=== PATIENT | male | born 1970 | race Caucasian/White ===

== ENCOUNTER 2017-10-28 20:46 | Inpatient (IN) ==
[2017-10-28] MEDS ORDERED: Thiamine Inj 100 MG in Sodium Chlor 0.9% Inj 100 ML IV.SIG ONE (20:55)
[2017-10-28] MEDS ORDERED: Magnesium Oxide 400 MG Tablet PO PRN (21:08)
[2017-10-28] MEDS ORDERED: Potassium Chlor 20 mEq Premix 20 MEQ/100 ML PIGGYBACK IV.SIG PRN ×2 (21:08)
[2017-10-28] MEDS ORDERED: Potassium Phosphate 500 MG Soluble Tablet PO PRN ×2 (21:08)
[2017-10-28] MEDS ORDERED: fentaNYL 10 mcg/mL Premix Drip 2,500 MCG/250 ML BAG IV.SIG PRN (21:08)
[2017-10-28] MEDS ORDERED: Magnesium Sulfate Inj 4 GM in Sodium Chlor 0.9% Inj 92 ML IV.SIG PRN (21:08)
[2017-10-28] MEDS ORDERED: Potassium Chlor 40 mEq Premix 40 MEQ/100 ML PIGGYBACK IV.SIG PRN ×2 (21:08)
[2017-10-28] MEDS ORDERED: Potassium Chloride 25 MEQ Effervescent Tablet PO PRN (21:08)
[2017-10-28] MEDS ORDERED: Sodium Phosphate Inj 30 MMOL in Sodium Chlor 0.9% Inj 250 ML IV.SIG PRN (21:08)
[2017-10-28] MEDS ORDERED: Potassium Phosphate Inj 30 MMOL in Sodium Chlor 0.9% Inj 250 ML IV.SIG PRN (21:08)
[2017-10-28] MEDS ORDERED: Magnesium Sulfate Inj 2 GM in Sodium Chlor 0.9% Inj 96 ML IV.SIG PRN (21:08)
[2017-10-28] MEDS ORDERED: Bisacodyl 10 MG Supp RECTAL PRN (21:08)
--- NOTE | 2017-10-28 21:13 | ED ---
HPI General Chief Complaint: Altered Mental Status Stated Complaint: Medical Time Seen by Provider: 10/28/17 20:54 Source: EMS Mode of arrival: EMS Limitations: altered mental status History of Present Illness HPI narrative: According to rotary driller helper report transported adult male to the emergency department after called as patient returned home from local bar after reportedly drinking 2 alcoholic beverages complaining of severe chest pain. per rotary driller helper report voices no known medical conditions no reported history of heart disease hypertension dyslipidemia or diabetes. No reported known allergies. No reported prescription medications. Upon fire department arrival patient sitting the chair was noted to have 2 episodes of brief syncope and spontaneous return of consciousness but appeared to be agitated or postictal and then paramedics arrived patient was initially calm and then became very erratic and combative in his behavior such that paramedics had to administer 500 mg IM of ketamine the patient was still combative and fighting the paramedics and firefighters therefore paramedics called for additional medication was given authorization to administer Versed 2 mg IV and according to rotary driller helper report patient then became unresponsive with sonorous respirations and patient was subsequently intubated with an 8.0 endotracheal tube after additional administration of Versed 2 mg and etomidate 20 mg. Patient was identified to have good bilateral breath sounds and was transported to the emergency department according to paramedics EKG was sinus tach with no evidence of acute ST elevation however ST segment depression was noted in V4 and V5 and QS noted septally in V1 and V2 no acute ST elevation. MD complaint: altered mental status Onset (ago): minute(s) Timing confirmed by: other (Report per EMS) Severity: severe Consistency of symptoms: constant Context: alcohol abuse (Reported alcohol consumption just prior to onset of symptoms) Associated symptoms: chest pain (According to paramedics stated patient has had complaint of chest pain prior to onset of symptoms) and syncope ( According to firefighters 2 brief syncopal episodes spontaneous return of consciousness) Treatments prior to arrival: intubation (8.0 cuffed endotracheal tube; ketamine 500 mg IM, Versed 2 mg IV, repeat Versed 2 mg IV and etomidate 20 mg IV) Related Data Home Medications Medication Instructions Recorded Confirmed cyclobenzaprine 10 mg PO TID PRN 10/28/17 10/28/17 pantoprazole 40 mg PO DAILY 10/28/17 10/28/17 Allergies Allergy/AdvReac Type Severity Reaction Status Date / Time No Known Allergies Allergy Unverified 10/28/17 20:54 Review of Systems ROS Unobtainable ROS Unobtainable: unobtainable due to endotracheal tube PMFSH History History Provided By: Business Banking Officer / EMT Social History Social History Substance History: Unable to Obtain Smoking Status: Unknown if ever smoked How Often Do You Have a Drink Containing Alcohol: Unable to Obtain Recent Travel in [facility] within the Last 8 Weeks: No Recent Out of Country Travel within the Last 8 Weeks: No Exam Narrative Exam Narrative: GENERAL: GCS 3-T; well-developed well-nourished male with endotracheal tube in place with breath sounds confirmed on EMS stretcher and emergency department stretcher; end-tidal CO2; no borborygmi SKIN: Focused skin assessment warm/dry. HEAD: Atraumatic. Normocephalic. EYES: Pupils equal and round reactive to light. No scleral icterus. No injection or drainage. ENT: No nasal bleeding or discharge. Mucous membranes pink and moist. Secured endotracheal tube. NECK: Trachea midline. No JVD. CARDIOVASCULAR: Increased regular rate and rhythm. No murmur appreciated. RESPIRATORY: No accessory muscle use. Clear to auscultation with assisted ventilations. Breath sounds equal bilaterally with assisted ventilations. GASTROINTESTINAL: Abdomen soft, non-tender, nondistended. No borborygmi. MUSCULOSKELETAL: No obvious deformities. No clubbing. No cyanosis. No edema. NEUROLOGICAL: Unresponsive, GCS 3-T. No obvious cranial nerve deficits. Course Consultations Consultation #1: discussed with Dental Hygiene Teacher Ladan Salmon --will accept to his service Time: 21:16 Initial Documented Vital Signs Pulse Oximetry 99 10/28/17 20:55 Last Documented Vital Signs Temperature 98.7 F 10/28/17 21:00 Pulse Rate 72 10/28/17 22:23 Respiratory Rate 20 10/28/17 22:23 Blood Pressure 116/60 10/28/17 22:23 Pulse Oximetry 96 10/28/17 22:23 Critical Care Time Critical Care Time: Yes Total Critical Care Time: 30 Attestation: Aggregate critical care time was 30 minutes. Time to perform other separately billable procedures was not included in the critical care time. My time did not include minutes spent treating any other patients simultaneously or on activities that did not directly contribute to the patient's treatment. The services I provided to this patient were to treat and/or prevent clinically significant deterioration that could result in: Arrhythmia, myocardial infarction, anoxic/metabolic encephalopathy, I provided critical care services requiring my management, as noted below: Chart data review, documentation time, medication orders and management, vital sign assessments/reviewing monitor data, ordering and reviewing lab tests, ordering and interpreting/reviewing x-rays and diagnostic studies, care of the patient and discussion of the patient with the admitting physicians. Medical Decision Making MDM Narrative Medical decision making narrative: Middle-aged adult male presents via EMS transport after becoming combative subsequently to drinking alcohol and complaining of chest pain patient presents intubated transferred from EMS stretcher to ED stretcher again breath sounds confirmed bilaterally and with end tidal CO2; placed on surveillance monitor with continuous pulse oximetry additional IV access obtained; propofol administered for ongoing sedation; EKG normal sinus rhythm rate 96 left axis deviation QS septally age-indeterminate with flattening of ST segment anterolaterally no acute ST segment elevation injury pattern or ectopy noted no comparison EKG other than EMS EKG which is consistent with sinus tachycardia QS septally V1 V2 and mild ST depression V4 V5. Specimens collected and sent for resulting stat chest x-ray ordered and patient placed on ventilator for ongoing ventilatory support and oxygenation; endotracheal tube re-secured. NG tube placed intermittent low wall suction Marte catheter inserted patient given bolus of normal saline. CT brain noncontrast ordered as a stat study. CT brain noncontrast per reading radiologist no acute process At 10:30 PM patient's family at bedside confirms patient has no known medical problems other than takes as needed Flexeril for muscle spasm; today had 5 or 6 beers throughout the day and then went to bar and had 2 drinks prior to returning home reportedly felt well was changing close to go swim and called his into the bathroom reportedly by cell phone she went to address his potential concern found him on the bathroom floor clutching his chest and he appeared nonresponsive for several minutes then reportedly while she was calling EMS to come and evaluate the patient he awakened did not recall having a fainting spell or syncopal episode voices no concerns or complaints and then upon towerman arrival was noted to have 2 more episodes of seconds to minutes in duration syncope without witnessed seizure activity and then upon EMS arrival became combative and acutely agitated, suspicious for possible post- ictal status v unknown ingestant; imaging negative for ich. Medical Screen Exam Complete: Yes Emergency Medical Condition: Yes Differential Diagnosis Differential Diagnosis: Altered mental status, ICH, hypertensive crisis, myocardial infarction, aortic dissection, polysubstance ingestion, seizure, acute psychosis Medical Records Medical records reviewed: Yes I reviewed the patient's medical records. not available Lab Data Lab results reviewed: Yes I reviewed the patient's lab results. Result diagrams: 10/28/17 21:00 10/28/17 21:00 Lab Results 10/28/17 10/28/17 10/28/17 Range/Units 13:16 21:00 21:00 WBC 9.9 (4.0-11.0) th/mm3 RBC 5.03 (4.50-5.90) mil/mm3 Hgb 15.2 (13.0-17.0) gm/dL Hct 44.2 (39.0-51.0) % MCV 87.9 (80.0-100.0) fL MCH 30.2 (27.0-34.0) pg MCHC 34.3 (32.0-36.0) % RDW 12.7 (11.6-17.2) % Plt Count 194 (150-450) th/mm3 MPV 8.5 (7.0-11.0) fL Neut % (Auto) 49.9 (16.0-70.0) % Lymph % (Auto) 42.6 (9.0-44.0) % Meade % (Auto) 6.4 (0.0-8.0) % Eos % (Auto) 0.6 (0.0-4.0) % Baso % (Auto) 0.5 (0.0-2.0) % Neut # (Auto) 4.9 (1.8-7.7) th/mm3 Lymph # (Auto) 4.2 (1.0-4.8) th/mm3 Meade # (Auto) 0.6 (0.0-0.9) th/mm3 Eos # (Auto) 0.1 (0.0-0.4) th/mm3 Baso # (Auto) 0.0 (0.0-0.2) th/mm3 WBC Differential . Differential Comment Auto diff final PT 9.9 (9.8-11.6) sec INR 1.0 Ratio APTT 21.2 L (24.3-30.1) sec Puncture Site Patient Temperature O2 Saturation (90-100) % ABG pH (7.380-7.420) ABG pCO2 (38-42) mmHg ABG pO2 (61-120) mmHg ABG HCO3 (22-26) mmol/L ABG O2 Content (12.0-20.0) Vol % ABG Base Excess (-2-2) mmol/L ABG Methemoglobin (0-2) % Ruslan Test Hemoglobin (12.0-16.0) G/DL Carboxyhemoglobin (0-4) % O2 Delivery Device Vent Setting Inspired O2 % Critical Value Sodium (136-145) meq/L Potassium (3.5-5.1) meq/L Chloride (98-107) meq/L Carbon Dioxide (21.0-32.0) meq/L Anion Gap (5-15) meq/L BUN (7-18) mg/dL Creatinine (0.60-1.30) mg/dL Estimated GFR (>89) mL/min Random Glucose (74-106) mg/dL Lactic Acid (0.4-2.0) mmol/L Calcium (8.5-10.1) mg/dL Magnesium (1.5-2.5) mg/dL Total Bilirubin (0.2-1.0) mg/dL AST (15-37) U/L ALT (12-78) U/L Alkaline Phosphatase (45-117) U/L Ammonia (11-32) mcmol/L Total Creatine Kinase (39-308) U/L Troponin I (0.02-0.05) ng/mL Total Protein (6.4-8.2) g/dL Albumin (3.4-5.0) g/dL TSH (0.358-3.740) uIU/mL Urine Color (Yellw/Straw) Urine Clarity (Clear) Urine pH (5.0-8.5) Ur Specific Tasley (1.002-1.035) Urine Protein (Neg-Trace) mg/dL Urine Glucose (UA) (Negative) mg/dL Urine Ketones (Negative) mg/dL Urine Occult Blood (Negative) Urine Nitrate (Negative) Urine Bilirubin (Negative) Urine Urobilinogen (Less than 2) mg/dL Ur Leukocyte Esterase (Negative) Urine RBC (0-3) /hpf Urine WBC (0-5) /hpf Micro UA Comment Ur Microscopic Review Urine Culture Comments Salicylates (2.8-20.0) mg/dL Urine Opiates Screen (Neg) Ur Barbiturates Screen (Neg) Ur Amphetamine Screen (Neg) Ur Amphetamines Screen (Neg) U Benzodiazepines Scrn (Neg) Urine Cocaine Screen (Neg) U Cannabinoids Screen (Neg) Serum Alcohol (0-5) mg/dL Blood Type B Positive Antibody Screen Negative 10/28/17 10/28/17 10/28/17 Range/Units 21:00 21:00 21:00 WBC (4.0-11.0) th/mm3 RBC (4.50-5.90) mil/mm3 Hgb (13.0-17.0) gm/dL Hct (39.0-51.0) % MCV (80.0-100.0) fL MCH (27.0-34.0) pg MCHC (32.0-36.0) % RDW (11.6-17.2) % Plt Count (150-450) th/mm3 MPV (7.0-11.0) fL Neut % (Auto) (16.0-70.0) % Lymph % (Auto) (9.0-44.0) % Meade % (Auto) (0.0-8.0) % Eos % (Auto) (0.0-4.0) % Baso % (Auto) (0.0-2.0) % Neut # (Auto) (1.8-7.7) th/mm3 Lymph # (Auto) (1.0-4.8) th/mm3 Meade # (Auto) (0.0-0.9) th/mm3 Eos # (Auto) (0.0-0.4) th/mm3 Baso # (Auto) (0.0-0.2) th/mm3 WBC Differential Differential Comment PT (9.8-11.6) sec INR Ratio APTT (24.3-30.1) sec Puncture Site Patient Temperature O2 Saturation (90-100) % ABG pH (7.380-7.420) ABG pCO2 (38-42) mmHg ABG pO2 (61-120) mmHg ABG HCO3 (22-26) mmol/L ABG O2 Content (12.0-20.0) Vol % ABG Base Excess (-2-2) mmol/L ABG Methemoglobin (0-2) % Ruslan Test Hemoglobin (12.0-16.0) G/DL Carboxyhemoglobin (0-4) % O2 Delivery Device Vent Setting Inspired O2 % Critical Value Sodium 139 (136-145) meq/L Potassium 3.4 L (3.5-5.1) meq/L Chloride 105 (98-107) meq/L Carbon Dioxide 23.1 (21.0-32.0) meq/L Anion Gap 11 (5-15) meq/L BUN 12 (7-18) mg/dL Creatinine 1.36 H (0.60-1.30) mg/dL Estimated GFR 45 L (>89) mL/min Random Glucose 122 H (74-106) mg/dL Lactic Acid 3.9 H (0.4-2.0) mmol/L Calcium 8.2 L (8.5-10.1) mg/dL Magnesium 2.2 (1.5-2.5) mg/dL Total Bilirubin 0.6 (0.2-1.0) mg/dL AST 42 H (15-37) U/L ALT 62 (12-78) U/L Alkaline Phosphatase 84 (45-117) U/L Ammonia (11-32) mcmol/L Total Creatine Kinase 236 (39-308) U/L Troponin I Less than 0.02 L (0.02-0.05) ng/mL Total Protein 7.9 (6.4-8.2) g/dL Albumin 3.9 (3.4-5.0) g/dL TSH 3.700 (0.358-3.740) uIU/mL Urine Color (Yellw/Straw) Urine Clarity (Clear) Urine pH (5.0-8.5) Ur Specific Tasley (1.002-1.035) Urine Protein (Neg-Trace) mg/dL Urine Glucose (UA) (Negative) mg/dL Urine Ketones (Negative) mg/dL Urine Occult Blood (Negative) Urine Nitrate (Negative) Urine Bilirubin (Negative) Urine Urobilinogen (Less than 2) mg/dL Ur Leukocyte Esterase (Negative) Urine RBC (0-3) /hpf Urine WBC (0-5) /hpf Micro UA Comment Ur Microscopic Review Urine Culture Comments Salicylates Less than 1.7 L (2.8-20.0) mg/dL Urine Opiates Screen (Neg) Ur Barbiturates Screen (Neg) Ur Amphetamine Screen (Neg) Ur Amphetamines Screen (Neg) U Benzodiazepines Scrn (Neg) Urine Cocaine Screen (Neg) U Cannabinoids Screen (Neg) Serum Alcohol 204 H (0-5) mg/dL Blood Type Antibody Screen 10/28/17 10/28/17 10/28/17 Range/Units 21:00 21:00 21:00 WBC (4.0-11.0) th/mm3 RBC (4.50-5.90) mil/mm3 Hgb (13.0-17.0) gm/dL Hct (39.0-51.0) % MCV (80.0-100.0) fL MCH (27.0-34.0) pg MCHC (32.0-36.0) % RDW (11.6-17.2) % Plt Count (150-450) th/mm3 MPV (7.0-11.0) fL Neut % (Auto) (16.0-70.0) % Lymph % (Auto) (9.0-44.0) % Meade % (Auto) (0.0-8.0) % Eos % (Auto) (0.0-4.0) % Baso % (Auto) (0.0-2.0) % Neut # (Auto) (1.8-7.7) th/mm3 Lymph # (Auto) (1.0-4.8) th/mm3 Meade # (Auto) (0.0-0.9) th/mm3 Eos # (Auto) (0.0-0.4) th/mm3 Baso # (Auto) (0.0-0.2) th/mm3 WBC Differential Differential Comment PT (9.8-11.6) sec INR Ratio APTT (24.3-30.1) sec Puncture Site Patient Temperature O2 Saturation (90-100) % ABG pH (7.380-7.420) ABG pCO2 (38-42) mmHg ABG pO2 (61-120) mmHg ABG HCO3 (22-26) mmol/L ABG O2 Content (12.0-20.0) Vol % ABG Base Excess (-2-2) mmol/L ABG Methemoglobin (0-2) % Ruslan Test Hemoglobin (12.0-16.0) G/DL Carboxyhemoglobin (0-4) % O2 Delivery Device Vent Setting Inspired O2 % Critical Value Sodium (136-145) meq/L Potassium (3.5-5.1) meq/L Chloride (98-107) meq/L Carbon Dioxide (21.0-32.0) meq/L Anion Gap (5-15) meq/L BUN (7-18) mg/dL Creatinine (0.60-1.30) mg/dL Estimated GFR (>89) mL/min Random Glucose (74-106) mg/dL Lactic Acid (0.4-2.0) mmol/L Calcium (8.5-10.1) mg/dL Magnesium Cancelled (1.5-2.5) mg/dL Total Bilirubin (0.2-1.0) mg/dL AST (15-37) U/L ALT (12-78) U/L Alkaline Phosphatase (45-117) U/L Ammonia 59 H (11-32) mcmol/L Total Creatine Kinase Cancelled (39-308) U/L Troponin I (0.02-0.05) ng/mL Total Protein (6.4-8.2) g/dL Albumin (3.4-5.0) g/dL TSH (0.358-3.740) uIU/mL Urine Color (Yellw/Straw) Urine Clarity (Clear) Urine pH (5.0-8.5) Ur Specific Tasley (1.002-1.035) Urine Protein (Neg-Trace) mg/dL Urine Glucose (UA) (Negative) mg/dL Urine Ketones (Negative) mg/dL Urine Occult Blood (Negative) Urine Nitrate (Negative) Urine Bilirubin (Negative) Urine Urobilinogen (Less than 2) mg/dL Ur Leukocyte Esterase (Negative) Urine RBC (0-3) /hpf Urine WBC (0-5) /hpf Micro UA Comment Ur Microscopic Review Urine Culture Comments Salicylates (2.8-20.0) mg/dL Urine Opiates Screen (Neg) Ur Barbiturates Screen (Neg) Ur Amphetamine Screen (Neg) Ur Amphetamines Screen (Neg) U Benzodiazepines Scrn (Neg) Urine Cocaine Screen (Neg) U Cannabinoids Screen (Neg) Serum Alcohol (0-5) mg/dL Blood Type Antibody Screen 10/28/17 10/28/17 10/28/17 Range/Units 21:08 21:08 21:08 WBC (4.0-11.0) th/mm3 RBC (4.50-5.90) mil/mm3 Hgb (13.0-17.0) gm/dL Hct (39.0-51.0) % MCV (80.0-100.0) fL MCH (27.0-34.0) pg MCHC (32.0-36.0) % RDW (11.6-17.2) % Plt Count (150-450) th/mm3 MPV (7.0-11.0) fL Neut % (Auto) (16.0-70.0) % Lymph % (Auto) (9.0-44.0) % Meade % (Auto) (0.0-8.0) % Eos % (Auto) (0.0-4.0) % Baso % (Auto) (0.0-2.0) % Neut # (Auto) (1.8-7.7) th/mm3 Lymph # (Auto) (1.0-4.8) th/mm3 Meade # (Auto) (0.0-0.9) th/mm3 Eos # (Auto) (0.0-0.4) th/mm3 Baso # (Auto) (0.0-0.2) th/mm3 WBC Differential Differential Comment PT (9.8-11.6) sec INR Ratio APTT (24.3-30.1) sec Puncture Site Patient Temperature O2 Saturation (90-100) % ABG pH (7.380-7.420) ABG pCO2 (38-42) mmHg ABG pO2 (61-120) mmHg ABG HCO3 (22-26) mmol/L ABG O2 Content (12.0-20.0) Vol % ABG Base Excess (-2-2) mmol/L ABG Methemoglobin (0-2) % Ruslan Test Hemoglobin (12.0-16.0) G/DL Carboxyhemoglobin (0-4) % O2 Delivery Device Vent Setting Inspired O2 % Critical Value Sodium (136-145) meq/L Potassium (3.5-5.1) meq/L Chloride (98-107) meq/L Carbon Dioxide (21.0-32.0) meq/L Anion Gap (5-15) meq/L BUN (7-18) mg/dL Creatinine (0.60-1.30) mg/dL Estimated GFR (>89) mL/min Random Glucose (74-106) mg/dL Lactic Acid (0.4-2.0) mmol/L Calcium (8.5-10.1) mg/dL Magnesium (1.5-2.5) mg/dL Total Bilirubin (0.2-1.0) mg/dL AST (15-37) U/L ALT (12-78) U/L Alkaline Phosphatase (45-117) U/L Ammonia (11-32) mcmol/L Total Creatine Kinase (39-308) U/L Troponin I (0.02-0.05) ng/mL Total Protein (6.4-8.2) g/dL Albumin (3.4-5.0) g/dL TSH (0.358-3.740) uIU/mL Urine Color Colorless (Yellw/Straw) Urine Clarity Clear (Clear) Urine pH 5.0 (5.0-8.5) Ur Specific Tasley 1.002 (1.002-1.035) Urine Protein Negative (Neg-Trace) mg/dL Urine Glucose (UA) Negative (Negative) mg/dL Urine Ketones Negative (Negative) mg/dL Urine Occult Blood Negative (Negative) Urine Nitrate Negative (Negative) Urine Bilirubin Negative (Negative) Urine Urobilinogen Less than 2 (Less than 2) mg/dL Ur Leukocyte Esterase Negative (Negative) Urine RBC Less than 1 (0-3) /hpf Urine WBC Less than 1 (0-5) /hpf Micro UA Comment Cath-culture not ind Ur Microscopic Review Not Reportable Urine Culture Comments Cath-cult not ind Salicylates (2.8-20.0) mg/dL Urine Opiates Screen Neg Neg (Neg) Ur Barbiturates Screen Neg Neg (Neg) Ur Amphetamine Screen Neg (Neg) Ur Amphetamines Screen Neg (Neg) U Benzodiazepines Scrn Neg Neg (Neg) Urine Cocaine Screen Neg Neg (Neg) U Cannabinoids Screen Neg Neg (Neg) Serum Alcohol (0-5) mg/dL Blood Type Antibody Screen 10/28/17 Range/Units 21:20 WBC (4.0-11.0) th/mm3 RBC (4.50-5.90) mil/mm3 Hgb (13.0-17.0) gm/dL Hct (39.0-51.0) % MCV (80.0-100.0) fL MCH (27.0-34.0) pg MCHC (32.0-36.0) % RDW (11.6-17.2) % Plt Count (150-450) th/mm3 MPV (7.0-11.0) fL Neut % (Auto) (16.0-70.0) % Lymph % (Auto) (9.0-44.0) % Meade % (Auto) (0.0-8.0) % Eos % (Auto) (0.0-4.0) % Baso % (Auto) (0.0-2.0) % Neut # (Auto) (1.8-7.7) th/mm3 Lymph # (Auto) (1.0-4.8) th/mm3 Meade # (Auto) (0.0-0.9) th/mm3 Eos # (Auto) (0.0-0.4) th/mm3 Baso # (Auto) (0.0-0.2) th/mm3 WBC Differential Differential Comment PT (9.8-11.6) sec INR Ratio APTT (24.3-30.1) sec Puncture Site Right radial Patient Temperature 98.6 O2 Saturation 98 (90-100) % ABG pH 7.28 L* (7.380-7.420) ABG pCO2 49 H (38-42) mmHg ABG pO2 388 H (61-120) mmHg ABG HCO3 22 (22-26) mmol/L ABG O2 Content 20.8 H (12.0-20.0) Vol % ABG Base Excess -3.3 L (-2-2) mmol/L ABG Methemoglobin 0.9 (0-2) % Ruslan Test Present Hemoglobin 14.4 (12.0-16.0) G/DL Carboxyhemoglobin 0.4 (0-4) % O2 Delivery Device Ventilator Vent Setting Vac/16/550/+5 Inspired O2 100 % Critical Value Yes Sodium (136-145) meq/L Potassium (3.5-5.1) meq/L Chloride (98-107) meq/L Carbon Dioxide (21.0-32.0) meq/L Anion Gap (5-15) meq/L BUN (7-18) mg/dL Creatinine (0.60-1.30) mg/dL Estimated GFR (>89) mL/min Random Glucose (74-106) mg/dL Lactic Acid (0.4-2.0) mmol/L Calcium (8.5-10.1) mg/dL Magnesium (1.5-2.5) mg/dL Total Bilirubin (0.2-1.0) mg/dL AST (15-37) U/L ALT (12-78) U/L Alkaline Phosphatase (45-117) U/L Ammonia (11-32) mcmol/L Total Creatine Kinase (39-308) U/L Troponin I (0.02-0.05) ng/mL Total Protein (6.4-8.2) g/dL Albumin (3.4-5.0) g/dL TSH (0.358-3.740) uIU/mL Urine Color (Yellw/Straw) Urine Clarity (Clear) Urine pH (5.0-8.5) Ur Specific Tasley (1.002-1.035) Urine Protein (Neg-Trace) mg/dL Urine Glucose (UA) (Negative) mg/dL Urine Ketones (Negative) mg/dL Urine Occult Blood (Negative) Urine Nitrate (Negative) Urine Bilirubin (Negative) Urine Urobilinogen (Less than 2) mg/dL Ur Leukocyte Esterase (Negative) Urine RBC (0-3) /hpf Urine WBC (0-5) /hpf Micro UA Comment Ur Microscopic Review Urine Culture Comments Salicylates (2.8-20.0) mg/dL Urine Opiates Screen (Neg) Ur Barbiturates Screen (Neg) Ur Amphetamine Screen (Neg) Ur Amphetamines Screen (Neg) U Benzodiazepines Scrn (Neg) Urine Cocaine Screen (Neg) U Cannabinoids Screen (Neg) Serum Alcohol (0-5) mg/dL Blood Type Antibody Screen Imaging Data Radiologist's impression: Chest X-Ray 10/28/17 20:54 CONCLUSION: Endotracheal tube in good position 5 cm above the angela. Head CT 10/28/17 20:55 CONCLUSION: 1. No acute intracranial abnormality. ECG Data EKG Prior to Arrival: Yes Attestation: I personally reviewed and interpreted this ECG as follows: Prior ECG tracings: available for review Pacemaker model: EKG: Discharge Plan Discharge Disposition Patient Disposition: 30 Still Patient Discharge Condition Condition: Stable Discharge Details Diagnosis: Altered mental status, Alcoholic intoxication, Acidosis, lactic, Syncope Physicians Team ED Provider: Charmaine Pepper Primary Care Provider: Primary Care Sonal Epperson Attending Provider: Kristofer Salmon Status ED Status: Admitted Patient
[2017-10-28] MEDS: Propofol 1000 mg/100 ml Inj 1,000 MG/100 ML BOTTLE IV.CONT PRN (21:19)
--- NOTE | 2017-10-28 21:19 | XR ---
EXAM DATE: 10/28/2017 9:12 PM EDT AGE/SEX: 89 years / Male INDICATIONS: Intubation. CLINICAL DATA: This is the patient's initial encounter. Patient reports that signs and symptoms have been present for 1 day and indicates a pain score of Nonresponsive. MEDICAL/SURGICAL HISTORY: Non-responsive. Non-responsive. COMPARISON: No prior exams available for comparison. FINDINGS: The endotracheal tube has its tip 5 cm from the angela. A nasogastric tube has tip in stomach. The he art is normal. The lungs are clear. CONCLUSION: Endotracheal tube in good position 5 cm above the angela. Electronically signed by: Hussein Boles MD 10/28/2017 9:17 PM EDT
[2017-10-28 21:21] LABS: Baso % (Auto) 0.5 % (0.0-2.0); Eos # (Auto) 0.1 th/mm3 (0.0-0.4); Eos % (Auto) 0.6 % (0.0-4.0); Hematocrit 44.2 % (39.0-51.0); Hemoglobin 15.2 gm/dL (13.0-17.0); Lymph # (Auto) 4.2 th/mm3 (1.0-4.8); Lymph % (Auto) 42.6 % (9.0-44.0); Mean Corpuscular HGB Conc 34.3 % (32.0-36.0); Mean Corpuscular Hemoglobin 30.2 pg (27.0-34.0); Mean Corpuscular Volume 87.9 fL (80.0-100.0); Mean Platelet Volume 8.5 fL (7.0-11.0); Mono # (Auto) 0.6 th/mm3 (0.0-0.9); Mono % (Auto) 6.4 % (0.0-8.0); Neut # (Auto) 4.9 th/mm3 (1.8-7.7); Neut % (Auto) 49.9 % (16.0-70.0); Platelet Count 194 th/mm3 (150-450); Red Blood Count 5.03 mil/mm3 (4.50-5.90); Red Cell Distribution Width 12.7 % (11.6-17.2); White Blood Count 9.9 th/mm3 (4.0-11.0)
[2017-10-28 21:26] LABS: ABG Base Excess -3.3 mmol/L (-2-2); ABG PCO2 49 mmHg (38-42); ABG PO2 388 mmHg (61-120)
[2017-10-28 21:32] LABS: Activated Partial Thrombo Time 21.2 sec (24.3-30.1); Prothrombin Time 9.9 sec (9.8-11.6)
[2017-10-28 21:37] LABS: Bilirubin,Urine Negative (Negative); Clarity,Urine Clear (Clear); Color,Urine Colorless (Yellw/Straw); Glucose,Urine (UA) Negative (Negative); Leukocyte Esterase,Urine Negative (Negative); Nitrite,Urine Negative (Negative); Specific Gravity,Urine 1.002 (1.002-1.035)
[2017-10-28 21:38] LABS: Alanine Aminotransferase 62 U/L (12-78); Albumin 3.9 g/dL (3.4-5.0); Anion Gap 11 meq/L (5-15); Aspartate Aminotransferase 42 U/L (15-37); Blood Urea Nitrogen 12 mg/dL (7-18); Calcium 8.2 mg/dL (8.5-10.1); Carbon Dioxide 23.1 meq/L (21.0-32.0); Chloride 105 meq/L (98-107); Glomerular Filtration Rate 45 mL/min (>89); Glucose,Random 122 mg/dL (74-106); Magnesium 2.2 mg/dL (1.5-2.5); Potassium 3.4 meq/L (3.5-5.1); Sodium 139 meq/L (136-145)
[2017-10-28 21:40] LABS: Amphetamine Screen,Urine Neg (Neg); Barbiturate Screen,Urine Neg (Neg); Cannabinoid Screen,Urine Neg (Neg); Cocaine Screen,Urine Neg (Neg)
[2017-10-28 21:43] LABS: Opiate Screen,Urine Neg (Neg)
[2017-10-28 21:43] LABS: Alcohol 204 mg/dL (0-5)
[2017-10-28 21:48] LABS: Alkaline Phosphatase 84 U/L (45-117); Creatine Kinase 236 U/L (39-308); Total Protein 7.9 g/dL (6.4-8.2)
[2017-10-28] MEDS ORDERED: Multivitamin Inj 10 ML, Thiamine Inj 100 MG, Folic Acid Inj 1 MG in Sodium Chlor 0.9% I... IV.SIG SCH (22:00)
--- NOTE | 2017-10-28 22:10 | CT ---
EXAM DATE: 10/28/2017 10:04 PM EDT AGE/SEX: 89 years / Male INDICATIONS: Altered mental status. CLINICAL DATA: This is the patient's initial encounter. Patient reports that signs and symptoms have been present for 1 day and indicates a pain score of Nonresponsive. MEDICAL/SURGICAL HISTORY: Non-responsive. Non-responsive. RADIATION DOSE: 56.35 CTDI (mGy) COMPARISON: No prior exams available for comparison. TECHNIQUE: CT of the head without contrast. Using automated exposure control and adjustment of the mA and/or kV according to patient size, radiation dose was kept as low as reasonably achievable to ob tain optimal diagnostic quality images. DICOM format image data is available electronically for revi ew and comparison. FINDINGS: Cerebrum: The ventricles are normal for age. No evidence of midline shift, mass lesion, hemorrhage or acute infarction. No extraaxial fluid collections are seen. Posterior Fossa: The cerebellum and brainstem are intact. The 4th ventricle is midline. The cerebe llopontine angle is unremarkable. Extracranial: The visualized portion of the orbits is intact. Mild mucosal thickening is noted withi n the maxillary sinuses. Skull: The calvaria is intact. No evidence of skull fracture. CONCLUSION: 1. No acute intracranial abnormality. Electronically signed by: Hussein Boles MD 10/28/2017 10:08 PM EDT
[2017-10-28] MEDS ORDERED: Dextrose 50% in Water 50 ML Vial IV.PUSH PRN (22:20)
[2017-10-28 23:12] LABS: Amphetamine Urine With Conf Neg (Neg); Benzodiazepine Urine With Conf Neg (Neg)
--- NOTE | 2017-10-28 23:37 | P.HPCC ---
History of Present Illness Service: Critical care medicine Primary Care Physician: No Primary Care Physician Chief Complaint: Altered mental status History of Present Illness: Middle-age male who presents by EVAC for acute altered mentation. Per EVAC in ER reports he was out having a few drinks. He came home and had 2 syncopal episodes witnessed by his . EVAC was called. When EVAC arrived patient was agitated and combative. He was given 500 mg IV ketamine at which point he became obtunded. He was given IV midazolam and emergently intubated. He presents the emergency department. He has a slightly elevated lactic acid and ammonia levels suggested that he could have had ictal activity. His EtOH level is greater than 200. No additional information is available from the patient. Review of systems unobtainable. Inpatient Certification: I certify that the inpatient services were ordered in accordance with Medicare regulations governing the order. This includes certification that hospital inpatient services are reasonable and necessary and in the case of services not specified as inpatient-only under 42 CFR 419.22(n), that they are appropriately provided as inpatient services in accordance to with the 2-midnight benchmark under 43 CFR 412.3(e) Estimated Total Length of Stay (Days): 7 Plans for Post Hospital Care: Not yet determined Review of Systems unobtainable due to endotracheal tube, unobtainable due to mental status PMFSH - History History Provided By: Resident Medical Officer / EMT - Medical / Surgical Hx Neg / Unobtainable Medical Problems Denied: Unable to Obtain Surgical History: Unable to Obtain - Medical History Medical History: Medical History (Last Reviewed 10/29/17 @ 01:42 by Kristofer Salmon MD) Medical history unknown Surgical history unknown - Tobacco History Smoking Status: Unknown if ever smoked - Alcohol History How Often Do You Have a Drink Containing Alcohol: Unable to Obtain - Substance Use History Substance History: Unable to Obtain - Travel History Recent Travel in the [place] Within the Last 8 Weeks: No Recent Travel Out of the Country Within the Last 8 Weeks: No - Immunization History Tetanus Immunization: Unable to Assess Hx Influenza Vaccine This Season: Unable to Assess Medications and Allergies Active Medications: Active Medications Albuterol (Duoneb Neb (Prn)) 1 ampul NEB Q2HR NEB PRN PRN Reason: WHEEZING Albuterol (Duoneb Neb (Bishnu)) 1 ampul NEB Q6HR NEB BISHNU Last Admin: 10/28/17 21:43 Dose: 1 ampul Bisacodyl (Dulcolax Supp) 10 mg RECTAL DAILY PRN PRN Reason: if no BM in last 24h Chlorhexidine Gluconate (Peridex 0.12% Oral Kit) 15 ml OROPHARYNG BID@0800, 2000 [facility] Chlorhexidine Gluconate (Chlorhexidine 2% Cloth) 3 pack TOPICAL DAILY@0400 BISHNU Stop: 11/03/17 03:59 Chlorhexidine Gluconate (Chlorhexidine 2% Cloth) 3 pack TOPICAL DAILY@0400 PRN PRN Reason: Extra cloth needed Stop: 11/03/17 03:59 Dextrose (D50w Vial) 50 ml IV.PUSH UNSCH PRN PRN Reason: PER HYPOGLYCEMIA PROTOCOL Famotidine (Pepcid Pf Inj) 20 mg IV.PUSH Q12HR [facility] Glucagon (Glucagon Inj) 1 mg OTHER UNSCH PRN PRN Reason: for Hypoglycemia Protocol Propofol (Diprivan 1000 Mg/100 Ml Inj) 1,000 mg in 100 mls @ 3.6 mls/hr IV.CONT TITRATE PRN; Protocol PRN Reason: Per Protocol Last Titration: 10/28/17 23:28 Dose: 30 mcg/kg/min, 21.6 mls/hr Potassium Chloride (Kcl 20 Meq Premix Inj) 20 meq in 100 mls @ 50 mls/hr IV.SIG Q2H PRN PRN Reason: For Potassium 2.8 - 3.2 mEq/L Fentanyl (Fentanyl 10 Mcg/Ml Premix Drip) 2,500 mcg in 250 mls @ 5 mls/hr IV.SIG TITRATE PRN; Protocol PRN Reason: Per Protocol Magnesium Sulfate Inj 4 gm/ (Sodium Chloride) 100 mls @ 50 mls/hr IV.SIG UNSCH PRN PRN Reason: For Magnesium 0.9 - 1.1 mg/dL Magnesium Sulfate Inj 2 gm/ (Sodium Chloride) 100 mls @ 50 mls/hr IV.SIG UNSCH PRN PRN Reason: For Magnesium 1.2 - 1.6 mg/dL Potassium Chloride (Kcl 40 Meq Premix Inj) 40 meq in 100 mls @ 50 mls/hr IV.SIG Q2H PRN PRN Reason: For Potassium 2.8 - 3.2 mEq/L Potassium Chloride (Kcl 20 Meq Premix Inj) 20 meq in 100 mls @ 50 mls/hr IV.SIG Q2H PRN PRN Reason: For Potassium 3.3 - 3.5 mEq/L Potassium Chloride (Kcl 40 Meq Premix Inj) 40 meq in 100 mls @ 25 mls/hr IV.SIG UNSCH PRN PRN Reason: For Potassium 3.3 - 3.5 mEq/L Potassium Phosphate 30 mmol/ (Sodium Chloride) 260 mls @ 42 mls/hr IV.SIG UNSCH PRN PRN Reason: SEE LABEL COMMENTS Sodium Phosphate 30 mmol/ (Sodium Chloride) 260 mls @ 42 mls/hr IV.SIG UNSCH PRN PRN Reason: For Phosphorus < 2.5 mg/dL Lactated Ringer's (Lr 1000 Ml Inj) 1,000 mls @ 84 mls/hr IV.SIG .[id number] BISHNU Last Admin: 10/28/17 21:37 Dose: 84 mls/hr Multivitamins 10 ml/ Thiamine HCl 100 mg/ Folic Acid 1 mg/Sodium Chloride 511.2 mls @ 125 mls/hr IV.SIG Q24H BISHNU Stop: 10/31/17 13:06 Insulin Human Regular (Novolin R Correctional Sugar Inj) 0 units SQ Q6HR BISHNU; Protocol Lactulose (Lactulose Liq) 30 ml PO BID BISHNU Magnesium Oxide (Mag-Ox) 800 mg PO UNSCH PRN PRN Reason: For Magnesium 1.2 - 1.6 mg/dL Ondansetron HCl (Zofran Inj) 4 mg IV.PUSH Q6H PRN PRN Reason: NAUSEA OR VOMITING Polyethylene Glycol (Miralax) 17 gm PO BID BISHNU Potassium Bicarb/Potassium Chloride (K-Lyte Cl Eff) 50 meq PO UNSCH PRN PRN Reason: For Potassium 3.3 - 3.5 mEq/L Potassium Phosphate (K-Phos Original) 2,000 mg PO Q4H PRN PRN Reason: Phosphorus Less Than 2.5 mg/dL Potassium Phosphate (K-Phos Original) 2,000 mg PO UNSCH PRN PRN Reason: SEE LABEL COMMENTS Senna/Docusate Sodium (Jodi-Colace) 1 tab PO BID [facility] Sodium Chloride (Ns Flush) 2 ml IV.FLUSH UNSCH PRN PRN Reason: FLUSH AFTER USING IV ACCESS Allergies Allergy/AdvReac Type Severity Reaction Status Date / Time No Known Allergies Allergy Unverified 10/28/17 20:54 Home Medications Medication Instructions Recorded Confirmed Type cyclobenzaprine 10 mg PO TID PRN 10/28/17 10/28/17 History pantoprazole 40 mg PO DAILY 10/28/17 10/28/17 History Results - Labs CBC & Chem 7: 10/28/17 21:00 10/28/17 21:00 Labs: Short CBC 10/28/17 Range/Units 21:00 WBC 9.9 (4.0-11.0) th/mm3 Hgb 15.2 (13.0-17.0) gm/dL Hct 44.2 (39.0-51.0) % Plt Count 194 (150-450) th/mm3 BMP 10/28/17 21:00 Sodium 139 Potassium 3.4 L Chloride 105 Carbon Dioxide 23.1 BUN 12 Creatinine 1.36 H Calcium 8.2 L Cardiac Enzymes 10/28/17 10/28/17 Range/Units 21:00 21:00 Total Creatine Kinase 236 Cancelled (39-308) U/L Troponin I Less than 0.02 L (0.02-0.05) ng/mL Liver Function 10/28/17 Range/Units 21:00 Total Bilirubin 0.6 (0.2-1.0) mg/dL AST 42 H (15-37) U/L ALT 62 (12-78) U/L Alkaline Phosphatase 84 (45-117) U/L Albumin 3.9 (3.4-5.0) g/dL Urine 10/28/17 Range/Units 21:08 Urine Color Colorless (Yellw/Straw) Urine Clarity Clear (Clear) Urine pH 5.0 (5.0-8.5) Ur Specific [place] 1.002 (1.002-1.035) Urine Protein Negative (Neg-Trace) mg/dL Urine Glucose (UA) Negative (Negative) mg/dL - Imaging Impressions Chest X-Ray 10/28/17 20:54 CONCLUSION: Endotracheal tube in good position 5 cm above the angela. Head CT 10/28/17 20:55 CONCLUSION: 1. No acute intracranial abnormality. Exam Vital signs: Vital Signs 10/28/17 20:55 10/28/17 21:00 10/28/17 21:10 Temperature 37.1 C Pulse Rate 99 H 79 Respiratory Rate 16 16 Blood Pressure 175/108 H 145/79 H Pulse Oximetry 99 99 96 10/28/17 21:35 10/28/17 21:44 10/28/17 22:06 Temperature Pulse Rate 76 76 87 Respiratory Rate 18 18 21 Blood Pressure 133/69 119/83 Pulse Oximetry 99 98 10/28/17 22:23 10/28/17 23:28 Temperature Pulse Rate 72 73 Respiratory Rate 20 18 Blood Pressure 116/60 161/90 H Pulse Oximetry 96 99 Intake & Output 10/28/17 10/28/17 10/29/17 06:59 18:59 06:59 Intake Total 116 / 116 Balance 116 / 116 Weight 120 kg Intake: IV 116 / 116 LR 1000 mL Inj 1,000 ML @ 84 15 / 15 mls/hr IV.CONT .[id number] BISHNU Rx# :[id number] Thiamine Inj 100 MG In NS Inj 101 / 101 100 ML @ 100 mls/hr IV.SIG ONCE ONE Rx#:[id number] Narrative: GENERAL: Middle-age appearing male, lying in bed, intubated, sedated HEENT: Normocephalic. Atraumatic. Pupils 2 mm, equal, round, reactive, conjugate. Mucous membranes are moist NECK: Trachea is midline. There is no JVD. CHEST: Equal chest rise. PRVC. PEEP of 5. SPO2 99%. CARDIOVASCULAR: Normal rate, regular rhythm. Sinus. ABDOMEN: Soft, nontender, nondistended. No guarding. MUSCULOSKELETAL: Pulses 2+. No peripheral edema. NEUROLOGICAL: RASS -4. Recently intubated and sedated. Appears to move all extremities. Pupils as above. Septic Shock Reassessment Septic shock perfusion: reassessment completed Caprini VTE Risk Assessment Caprini VTE Risk Assessment: Moderate/High Risk (score >= 2) Caprini Risk Assessment Model: Point Value = 1 Point Value = 2 Point Value = 3 Point Value = 5 Age 41-60 Minor surgery BMI > 25 kg/m2 Swollen legs Varicose veins or History of unexplained or recurrent spontaneous Oral contraceptives or hormone replacement Sepsis (< 1 month) Serious lung disease, including pneumonia (< 1 month) Abnormal pulmonary function Acute myocardial infarction Congestive heart failure (< 1 month) History of inflammatory bowel disease Medical patient at bed rest Age 61-74 Arthroscopic surgery Major open surgery (> 45 min) Laparoscopic surgery (> 45 min) Malignancy Confined to bed (> 72 hours) Immobilizing plaster cast Central venous access Age >= 75 History of VTE Family history of VTE Factor V Leiden Prothrombin [id number] Lupus anticoagulant Anticardiolipin antibodies Elevated serum homocysteine Heparin-induced thrombocytopenia Other congenital or acquired thrombophilia Stroke (< 1 month) Elective arthroplasty Hip, pelvis, or leg fracture Acute spinal cord injury (< 1 month) Prophylaxis Regimen: Total Risk Factor Score Risk Level Prophylaxis Regimen 0-1 Low Early ambulation 2 Moderate Order ONE of the following: *Sequential Compression Device (SCD) *Heparin 5000 units SQ BID 3-4 Higher Order ONE of the following medications: *Heparin 5000 units SQ TID *Enoxaparin/Lovenox 40 mg SQ daily (WT < 150 kg, CrCl > 30 mL/min) *Enoxaparin/Lovenox 30 mg SQ daily (WT < 150 kg, CrCl > 10-29 mL/min) *Enoxaparin/Lovenox 30 mg SQ BID (WT < 150 kg, CrCl > 30 mL/min) AND/OR *Sequential Compression Device (SCD) 5 or more Highest Order ONE of the following medications: *Heparin 5000 units SQ TID (Preferred with Epidurals) *Enoxaparin/Lovenox 40 mg SQ daily (WT < 150 kg, CrCl > 30 mL/min) *Enoxaparin/Lovenox 30 mg SQ daily (WT < 150 kg, CrCl > 10-29 mL/min) *Enoxaparin/Lovenox 30 mg SQ BID (WT < 150 kg, CrCl > 30 mL/min) AND *Sequential Compression Device (SCD) Assessment and Plan - Assessment and Plan Plan: Assessment: Middle-age male presents with acute toxic encephalopathy. Admit to ICU with frequent neurochecks. Will obtain EEG to rule out seizure disorder, although this may be toxic encephalopathy secondary to EtOH. Plan by systems: Neurologic: Acute toxic encephalopathy EtOH abuse Concern for EtOH withdrawal Frequent neurochecks Propofol and fentanyl for goal RASS -2 Avoid long-acting sedatives IV thiamine and multivitamins Watch for EtOH withdrawal Respiratory: Acute hypoxic and hypercarbic respiratory failure Vent bundle Head of bed elevated Nebs Wean FiO2 for goal SPO2 greater than 90% No weaning of mechanical ventilation until neurologic exam improves Cardiovascular: Keep on telemetry Renal: -- Strict I/Os FEN/GI: N.p.o. Place orogastric tube to low intermittent wall suction ICU electrolyte protocol Daily BMP, mag, phosphorus Heme/ID: No infectious etiology suspected this time Daily CBC Endocrine: -- SSI Prophylaxis: GI Prophylaxis Pepcid DVT Prophylaxis -- SCDs Heparin Lines: Peripheral IVs Dispo: Admit ICU. Critically ill. This patient remains critically ill with one or more organ systems which are or may become a threat to life. I have spent in excess of 34 minutes discontinuously in the care and management of this patient. This time is exclusive of procedures, and includes, but is not limited to, evaluation of the patient, review of the medical record, discussions with family, consultants, nursing staff, or respiratory therapy, and documentation in the medical record.
[2017-10-29] MEDS: Insulin NovoLIN Regular Correctional Sugar Inj SQ SCH ×4 (00:34→17:15)
[2017-10-29] MEDS: Oral Hygiene Kit OROPHARYNG SCH ×2 (00:34→05:48)
[2017-10-29] MEDS: Propofol 1000 mg/100 ml Inj 1,000 MG/100 ML BOTTLE IV.CONT PRN (02:31)
[2017-10-29] MEDS ORDERED: Chlorhexidine Gluconate 2% 1 Pack (2 Cloths) TOPICAL PRN (04:00)
--- NOTE | 2017-10-29 04:36 | XR ---
EXAM DATE: 10/29/2017 4:32 AM EDT AGE/SEX: 47 years / Male INDICATIONS: Shortness of breath, possible pulmonary disease. CLINICAL DATA: This is the patient's subsequent encounter. Patient reports that signs and symptoms h ave been present for 2 days and indicates a pain score of Nonresponsive. MEDICAL/SURGICAL HISTORY: Non-responsive. Non-responsive. COMPARISON: [facility], CHEST 1V SINGLE AP, 10/28/2017. . FINDINGS: ET tube tip well above the angela. Gastric tube tip and side-port project within the stomach. The hea rt is normal size. Both lungs are well-aerated. No focal infiltrates seen. CONCLUSION: The lungs are clear. Electronically signed by: Soren Mack MD 10/29/2017 4:35 AM EDT
[2017-10-29] MEDS: Chlorhexidine Gluconate 2% 1 Pack (2 Cloths) TOPICAL SCH (05:48)
[2017-10-29 05:58] LABS: ABG Base Excess -0.7 mmol/L (-2-2); ABG PCO2 42 mmHg (38-42); ABG PO2 167 mmHG (61-120)
[2017-10-29] MEDS ORDERED: Chlorhexidine 0.12% Oral Kit 15 ML UDC OROPHARYNG SCH (08:00)
[2017-10-29] MEDS ORDERED: Folic Acid 1 MG Tablet PO SCH (09:00)
[2017-10-29 09:07] LABS: Baso % (Auto) 0.3 % (0.0-2.0); Eos % (Auto) 0.4 % (0.0-4.0); Hematocrit 39.9 % (39.0-51.0); Hemoglobin 13.7 gm/dL (13.0-17.0); Lymph # (Auto) 2.2 th/mm3 (1.0-4.8); Lymph % (Auto) 26.4 % (9.0-44.0); Mean Corpuscular HGB Conc 34.3 % (32.0-36.0); Mean Corpuscular Hemoglobin 30.4 pg (27.0-34.0); Mean Corpuscular Volume 88.6 fL (80.0-100.0); Mean Platelet Volume 8.5 fL (7.0-11.0); Mono # (Auto) 0.9 th/mm3 (0.0-0.9); Mono % (Auto) 11.2 % (0.0-8.0); Neut # (Auto) 5.2 th/mm3 (1.8-7.7); Neut % (Auto) 61.7 % (16.0-70.0); Platelet Count 151 th/mm3 (150-450); Red Blood Count 4.51 mil/mm3 (4.50-5.90); Red Cell Distribution Width 13.1 % (11.6-17.2); White Blood Count 8.4 th/mm3 (4.0-11.0)
[2017-10-29 09:32] LABS: Alanine Aminotransferase 114 U/L (12-78); Albumin 3.5 g/dL (3.4-5.0); Anion Gap 11 meq/L (5-15); Aspartate Aminotransferase 172 U/L (15-37); Blood Urea Nitrogen 14 mg/dL (7-18); Calcium 8.4 mg/dL (8.5-10.1); Carbon Dioxide 24.2 meq/L (21.0-32.0); Chloride 108 meq/L (98-107); Glomerular Filtration Rate 68 mL/min (>89); Glucose,Random 107 mg/dL (74-106); Magnesium 2.3 mg/dL (1.5-2.5); Phosphorus 3.6 mg/dL (2.5-4.9); Sodium 143 meq/L (136-145)
[2017-10-29 09:39] LABS: Alkaline Phosphatase 79 U/L (45-117); Total Protein 6.7 g/dL (6.4-8.2)
--- NOTE | 2017-10-29 10:14 | P.PNCC ---
Subjective Subjective Remarks/Hospital Course: Middle-age male who presents by EVAC for acute altered mentation. Per EVAC in ER reports he was out having a few drinks. He came home and had 2 syncopal episodes witnessed by his . EVAC was called. When EVAC arrived patient was agitated and combative. He was given 500 mg IV ketamine at which point he became obtunded. He was given IV midazolam and emergently intubated. He presents the emergency department. He has a slightly elevated lactic acid and ammonia levels suggested that he could have had ictal activity. His EtOH level is greater than 200. No additional information is available from the patient. Review of systems unobtainable. SUBJECTIVE: 10/29: No issues overnight, EEG performed and is pending report. Patient successfully extubated to ME. States "I drank too much". Objective Vital Signs / I&O: Vital Signs 10/28/17 20:55 10/28/17 21:00 10/28/17 21:10 Temperature 98.7 F Pulse Rate 99 H 79 Respiratory Rate 16 16 Blood Pressure 175/108 H 145/79 H Pulse Oximetry 99 99 96 10/28/17 21:35 10/28/17 21:44 10/28/17 22:06 Temperature Pulse Rate 76 76 87 Respiratory Rate 18 18 21 Blood Pressure 133/69 119/83 Pulse Oximetry 99 98 10/28/17 22:23 10/28/17 23:28 10/28/17 23:40 Temperature Pulse Rate 72 73 Respiratory Rate 20 18 Blood Pressure 116/60 161/90 H Pulse Oximetry 96 99 100 10/29/17 00:00 10/29/17 01:00 10/29/17 02:00 Temperature 98.2 F Pulse Rate 77 60 56 L Respiratory Rate 17 16 16 Blood Pressure 138/66 97/54 L 93/53 L Pulse Oximetry 98 97 98 10/29/17 03:00 10/29/17 04:00 10/29/17 04:13 Temperature 98.1 F Pulse Rate 57 L 56 L Respiratory Rate 16 16 16 Blood Pressure 103/63 117/74 Pulse Oximetry 99 100 100 10/29/17 04:14 10/29/17 05:00 10/29/17 06:00 Temperature Pulse Rate 54 L 57 L 55 L Respiratory Rate 16 16 16 Blood Pressure 98/56 L 94/53 L Pulse Oximetry 99 98 10/29/17 07:38 10/29/17 09:51 Temperature Pulse Rate 54 L Respiratory Rate 16 16 Blood Pressure Pulse Oximetry 99 100 Intake & Output 10/28/17 10/29/17 10/29/17 18:59 06:59 18:59 Intake Total 216 / 216 Output Total 2250 / 2250 Balance -2033 / -2033 Weight 121 kg Intake: IV 216 / 216 LR 1000 mL Inj 1,000 ML @ 84 15 / 15 mls/hr IV.CONT .[id number] PATRICIA Rx# :[id number] Diprivan 1000 mg/100 ml Inj 1, 100 / 100 000 mg In 100 ml @ 5 MCG/KG/MIN 3.6 mls/hr IV.CONT TITRATE PRN Rx#:[id number] Thiamine Inj 100 MG In NS Inj 101 / 101 100 ML @ 100 mls/hr IV.SIG ONCE ONE Rx#:[id number] Output: Urine Amount (Catheter) 1850 / 1850 Indwelling Urethral Catheter 1850 / 1850 Gastric Drainage 400 / 400 Oral 400 / 400 Other: # Bowel Movements 0 Weight On Admission 122 kg Result Diagrams: 10/29/17 08:20 10/29/17 08:20 Objective Remarks: GEN: Well-appearing, no acute distress HEENT: NCAT, PERRL NECK: Trachea midline CARDIO: Regular rate and rhythm PULM: Clear to auscultation bilaterally, strong cough ABD: Soft, non-tender, non-distended EXT: No peripheral edema SKIN: No rashes or lesions NEURO: GCS 15, alert and oriented, follows commands and answers questions appropriately PSYCH: Appropriate affect Assessment and Plan - Assessment and Plan Plan: Assessment: Middle-age male presents with acute toxic encephalopathy. EEG performed to rule out seizure disorder, although this may be toxic encephalopathy secondary to EtOH. Plan by systems: Neurologic: Acute toxic encephalopathy-- resolved EtOH abuse Concern for EtOH withdrawal Decrease neuro checks to q4h F/U EEG results IV thiamine and multivitamins Watch for EtOH withdrawal Respiratory: Acute hypoxic and hypercarbic respiratory failure-- resolved Patient placed on bipap 8/5 and tolerated without difficulty, followed commands appropriately, (+) air leak Successfully extubated to ME Pulmonary toilet Cardiovascular: Keep on telemetry Renal: D/C Marte FEN/GI: NPO, bedside swallow eval; if passes, will start regular diet D/C IV fluids ICU electrolyte protocol Daily BMP, mag, phosphorus Heme/ID: No infectious etiology suspected this time Daily CBC Endocrine: SSI Prophylaxis: GI Prophylaxis Pepcid-- will d/c when eating DVT Prophylaxis -- SCDs Heparin Lines: Peripheral IVs Dispo: Remain in ICU for close neuro/ airway monitoring; if stable overnight, can transfer out tomorrow Counseling/ Coordination of Care: Total critical care time spent is 50 minutes. This includes examining the patient, gathering history from someone other than the patient (i.e. chart review), discussing the patient's care with other providers, managing the patient's blood pressure and ventilator settings, ordering and interpreting radiologic studies, ordering and interpreting laboratory values, managing the patient's sedation requirements, extubation, re-evaluation at frequent intervals , and documentation. Amount of time is separate from teaching, counseling the patient and/or family, and exclusive of procedures. Code Status: Full
[2017-10-29] MEDS: Senna/Docusate Sodium 8.6/50 MG Tablet PO SCH ×2 (11:33→20:48)
[2017-10-29] MEDS: Polyethylene Glycol 3350 17 GM Packet PO SCH ×2 (11:33→20:48)
[2017-10-29] MEDS: Famotidine PF Inj 20 MG/2 ML Vial IV.PUSH SCH ×2 (12:31→20:47)
[2017-10-29] MEDS ORDERED: LORazepam 1 MG Tablet PO PRN (14:20)
[2017-10-29] MEDS: Multivitamin Inj 10 ML, Thiamine Inj 100 MG, Folic Acid Inj 1 MG in Sodium Chlor 0.9% I... IV.SIG SCH (17:18)
--- NOTE | 2017-10-29 21:02 | MG ---
cc: Delphine Nettles MD EEG NUMBER [id number] REFERRING PHYSICIAN: Dr. Kristofer Salmon INDICATIONS: In room 521, intubated. Photic done. Diprivan at 30 mcg, fentanyl to 50 mcg today to combative off sedation. CT negative. Ethanol level 204. Admitted with chest pain, syncope, postictal, on fentanyl and propofol. DESCRIPTION OF RECORD: Overall slowing of background theta frequency, but at times, there is some alpha as well. EKG cannot be interpreted as there was a lot of artifact. Overall fairly symmetrical background. Photic stimulation does elicit a mild driving response. IMPRESSION: Mild slowing of background without any epileptiform features. Maybe due to medicine effect sedation. Clinical correlation. Delphine Nettles MD DF/sv/do , 07:12 PM , 07:16 PM
[2017-10-30] MEDS: Insulin NovoLIN Regular Correctional Sugar Inj SQ SCH ×2 (03:55→07:15)
[2017-10-30] MEDS: Chlorhexidine Gluconate 2% 1 Pack (2 Cloths) TOPICAL SCH (06:08)
[2017-10-30 06:12] LABS: Baso % (Auto) 0.4 % (0.0-2.0); Eos % (Auto) 0.5 % (0.0-4.0); Hematocrit 42.5 % (39.0-51.0); Hemoglobin 14.2 gm/dL (13.0-17.0); Lymph % (Auto) 22.9 % (9.0-44.0); Mean Corpuscular HGB Conc 33.4 % (32.0-36.0); Mean Corpuscular Hemoglobin 29.9 pg (27.0-34.0); Mean Corpuscular Volume 89.7 fL (80.0-100.0); Mean Platelet Volume 8.5 fL (7.0-11.0); Mono # (Auto) 0.8 th/mm3 (0.0-0.9); Mono % (Auto) 8.9 % (0.0-8.0); Neut # (Auto) 5.9 th/mm3 (1.8-7.7); Neut % (Auto) 67.3 % (16.0-70.0); Platelet Count 149 th/mm3 (150-450); Red Blood Count 4.74 mil/mm3 (4.50-5.90); Red Cell Distribution Width 12.9 % (11.6-17.2); White Blood Count 8.7 th/mm3 (4.0-11.0)
[2017-10-30 06:37] LABS: Alanine Aminotransferase 137 U/L (12-78); Albumin 3.5 g/dL (3.4-5.0); Anion Gap 8 meq/L (5-15); Aspartate Aminotransferase 83 U/L (15-37); Blood Urea Nitrogen 14 mg/dL (7-18); Calcium 8.3 mg/dL (8.5-10.1); Carbon Dioxide 26.8 meq/L (21.0-32.0); Chloride 105 meq/L (98-107); Glomerular Filtration Rate 60 mL/min (>89); Glucose,Random 98 mg/dL (74-106); Magnesium 2.4 mg/dL (1.5-2.5); Phosphorus 3.7 mg/dL (2.5-4.9); Sodium 140 meq/L (136-145)
[2017-10-30 06:39] LABS: Alkaline Phosphatase 103 U/L (45-117); Total Protein 7.2 g/dL (6.4-8.2)
[2017-10-30] MEDS: Multivitamin Inj 10 ML, Thiamine Inj 100 MG, Folic Acid Inj 1 MG in Sodium Chlor 0.9% I... IV.SIG SCH (08:21)
[2017-10-30] MEDS: Senna/Docusate Sodium 8.6/50 MG Tablet PO SCH (08:22)
[2017-10-30] MEDS: Polyethylene Glycol 3350 17 GM Packet PO SCH (08:22)
[2017-10-30] MEDS: Famotidine PF Inj 20 MG/2 ML Vial IV.PUSH SCH (08:22)
--- NOTE | 2017-10-30 09:58 | P.PN ---
Subjective Interval history: Nursing denies any deterioration since last night. CIWA score 0. Patient himself has no new complaints. Denies any chest pain shortness of breath. Denies having any chest pain or shortness of breath during his symptom onset prior to hospitalization. Physical Exam Vital signs: Vital Signs 10/29/17 10:00 10/29/17 10:20 10/29/17 10:26 Temperature Pulse Rate 49 L 72 Respiratory Rate 16 24 Blood Pressure 98/58 L 142/87 H Pulse Oximetry 100 100 98 10/29/17 10:40 10/29/17 11:00 10/29/17 11:08 Temperature Pulse Rate 65 72 76 Respiratory Rate 11 L 15 18 Blood Pressure 139/92 H 158/86 H 177/97 H Pulse Oximetry 100 100 100 10/29/17 11:20 10/29/17 12:00 10/29/17 12:20 Temperature Pulse Rate 77 67 68 Respiratory Rate 20 16 12 Blood Pressure 147/82 H 123/74 143/78 H Pulse Oximetry 100 94 L 99 10/29/17 12:40 10/29/17 13:00 10/29/17 13:20 Temperature Pulse Rate 72 64 65 Respiratory Rate 14 13 16 Blood Pressure 138/78 146/81 H 145/75 H Pulse Oximetry 98 99 100 10/29/17 13:40 10/29/17 14:00 10/29/17 14:20 Temperature Pulse Rate 73 74 72 Respiratory Rate 18 19 17 Blood Pressure 145/75 H 144/75 H 136/73 Pulse Oximetry 99 99 99 10/29/17 14:40 10/29/17 15:00 10/29/17 15:08 Temperature Pulse Rate 71 71 82 Respiratory Rate 18 17 20 Blood Pressure 136/71 128/73 Pulse Oximetry 99 100 10/29/17 15:20 10/29/17 15:40 10/29/17 16:00 Temperature Pulse Rate 74 84 79 Respiratory Rate 16 10 L 15 Blood Pressure 152/81 H 177/78 H 165/82 H Pulse Oximetry 100 100 100 10/29/17 16:20 10/29/17 16:40 10/29/17 17:00 Temperature Pulse Rate 72 80 80 Respiratory Rate 19 19 19 Blood Pressure 146/75 H 141/69 H 135/69 Pulse Oximetry 99 97 98 10/29/17 17:20 10/29/17 17:40 10/29/17 18:00 Temperature Pulse Rate 76 77 78 Respiratory Rate 19 15 21 Blood Pressure 138/71 133/68 151/80 H Pulse Oximetry 99 99 100 10/29/17 18:20 10/29/17 18:39 10/29/17 18:40 Temperature Pulse Rate 70 73 76 Respiratory Rate 6 L 8 L 9 L Blood Pressure 154/79 H 169/74 H Pulse Oximetry 100 99 97 10/29/17 19:00 10/29/17 19:20 10/29/17 19:40 Temperature Pulse Rate 86 74 78 Respiratory Rate 33 H 10 L 13 Blood Pressure 177/85 H 139/68 160/72 H Pulse Oximetry 100 98 98 10/29/17 20:03 10/29/17 20:04 10/29/17 20:45 Temperature 100.2 F H Pulse Rate 95 H 89 87 Respiratory Rate 15 20 20 Blood Pressure 171/81 H Pulse Oximetry 97 96 93 L 10/29/17 21:00 10/29/17 22:00 10/29/17 23:00 Temperature 100 F H Pulse Rate 93 H 94 H 81 Respiratory Rate 19 8 L 10 L Blood Pressure 151/72 H 142/71 H 147/73 H Pulse Oximetry 94 L 93 L 96 10/30/17 00:00 10/30/17 01:00 10/30/17 02:00 Temperature 99.7 F H Pulse Rate 76 74 68 Respiratory Rate 14 18 7 L Blood Pressure 136/70 138/71 136/71 Pulse Oximetry 94 L 95 96 10/30/17 03:00 10/30/17 04:00 10/30/17 04:32 Temperature 98.9 F Pulse Rate 63 62 66 Respiratory Rate 9 L 18 16 Blood Pressure 131/77 129/71 Pulse Oximetry 97 97 10/30/17 05:00 10/30/17 06:00 10/30/17 07:00 Temperature Pulse Rate 71 64 69 Respiratory Rate 12 16 12 Blood Pressure 162/81 H 143/77 H 142/80 H Pulse Oximetry 97 95 99 10/30/17 08:00 10/30/17 08:59 10/30/17 09:00 Temperature 98.9 F Pulse Rate 68 79 67 Respiratory Rate 11 L 17 22 Blood Pressure 146/85 H 148/82 H Pulse Oximetry 98 97 Intake & Output 10/29/17 10/30/1710/30/18 18:59 06:59 18:59 Intake Total 1430 / 1430 250 / 250 Output Total 1600 / 1600 Balance -170 / -170 250 / 250 Weight 120.5 kg Intake: IV 1280 / 1280 Diprivan 1000 mg/100 ml Inj 1, 80 / 80 000 mg In 100 ml @ 5 MCG/KG/MIN 3.6 mls/hr IV.CONT TITRATE PRN Rx#:[id number] LR 1000 mL Inj 1,000 ML @ 84 1000 / 1000 mls/hr IV.SIG .[id number] [facility] Rx#: [id number] fentaNYL 10 mcg/mL Premix Drip 200 / 200 2,500 mcg In 250 ml @ 50 MCG/HR 5 mls/hr IV.SIG TITRATE PRN Rx #:[id number] Oral 150 / 150 250 / 250 Output: Urine Amount (Catheter) 1600 / 1600 Indwelling Urethral Catheter 1600 / 1600 Other: # Voids 4 Date of Last Bowel Movement 10/30/17 10/29/17 # Bowel Movements 1 Narrative: Heart sounds regular rate rhythm, no murmurs Clear lungs bilaterally, unlabored breathing Alert and oriented 3 with intact insight 5/5 gross strength in proximal upper and lower extremities including for prescription bilaterally Intact finger to nose bilaterally - Urinary Catheter Management Indwelling Urethral Catheter Cath placed during this visit: yes Reason for continuing: Hourly intake/output Insertion date: 10/28/17 Insertion time: 21:09 Results - Labs CBC & Chem 7: 10/30/17 05:36 10/30/17 05:36 Laboratory Results - last 24 hr 10/30/17 10/30/17 05:36 05:36 WBC 8.7 RBC 4.74 Hgb 14.2 Hct 42.5 MCV 89.7 MCH 29.9 MCHC 33.4 RDW 12.9 Plt Count 149 L MPV 8.5 Neut % (Auto) 67.3 Lymph % (Auto) 22.9 [place] % (Auto) 8.9 H Eos % (Auto) 0.5 Baso % (Auto) 0.4 Neut # (Auto) 5.9 Lymph # (Auto) 2.0 [place] # (Auto) 0.8 Eos # (Auto) 0.0 Baso # (Auto) 0.0 WBC Differential . Differential Comment Auto diff final Sodium 140 Potassium 4.0 Chloride 105 Carbon Dioxide 26.8 Anion Gap 8 BUN 14 Creatinine 1.28 Estimated GFR 60 L Random Glucose 98 Calcium 8.3 L Phosphorus 3.7 Magnesium 2.4 Total Bilirubin 1.2 H AST 83 H ALT 137 H Alkaline Phosphatase 103 Total Protein 7.2 Albumin 3.5 Assessment and Plan - Plan 47-year-old white male who was admitted for acute encephalopathy likely secondary to alcohol toxicity, was initially intubated for airway protection. EEG was overall unremarkable except for diffuse slowing likely 2/2 sedation. Was extubated yesterday and has been doing well since. Encephalopathy Clinically resolved Likely was secondary to alcohol intoxication -No seizure-like activity found on EEG Syncope -No recurrence since being hospitalized but with history of chest pain at the time of admission, does warrant ACS rule out, troponin so far have been negative , ordering Lexiscan, patient is over classic weight limit will need to 2-day Lexiscan workup -starting aspirin and ordering echo Transaminitis Possibly secondary to alcohol although it is unusual that initially enzymes were within normal limits and then elevated, all enzymes seem to be improving at this point except for ALT which shows slight worsening, rechecking CMP in a.m. hopefully this is all secondary to acute alcoholic injury, otherwise obtain a hepatic ultrasound as well as viral hepatitis panel SCDs Addendum: After extensive discussion with the patient, patient decided to leave [facility]. [facility] I informed him that it was unsafe to leave the hospital without further evaluation and that that there is no guarantee he was going to get an outpatient expedited cardiac workup otherwise. Patient verbalized understanding of these risks.
[2017-10-30] MEDS ORDERED: Aspirin 325 MG Tablet PO SCH (11:00)
--- NOTE | 2017-10-30 12:09 | ECG ---
Date Performed: 10/28/2017 Time Performed: 20:49:54 PTAGE: 89 years EKG: Sinus rhythm MARKED LEFT AXIS DEVIATION MODERATE VOLTAGE CRITERIA FOR LVH, CONSIDER NORMAL VARIANT POSSIBLE SEPTA L MYOCARDIAL INFARCTION ABNORMAL ECG PREVIOUS TRACING : 10/28/2017 20.29 DOCTOR: Steve Agustin Interpretating Date/Time 10/30/2017 12:08:49
--- NOTE | 2017-10-30 13:50 | P.AMA ---
AMA Note - AMA Note AMA Statement: Patient Rene Roldan III has decided to leave the hospital against medical advice. This patient has the capacity to refuse care and understands the risks of leaving, including permanent disability and/or , and has had an opportunity to ask questions about his/her condition. The patient has been informed that he/she may return for care at any time, and follow up has been arranged/advised. - AMA Note Discharge Disposition: Left Against Medical Advice Patient Condition on Discharge: Stable
== END 2017-10-30 11:58 | disposition left against medical advice (07) ==
LOC: NEPC 20:46 → NEDA 22:35 → EDBD 22:35 → HIMC 23:45
PROVIDERS: ADMIT Hospitalist; ATTEND Hospitalist